=== PATIENT | male | born 1975 | race Caucasian/White ===

== ENCOUNTER 2019-12-13 08:00 | Outpatient (RCR) | payer BC ==
[~2019-12-13 08:00] MED LIST: ASPIRIN E.C. 8181 MG PO; NATURE'S BLEND1 TA6 PO; PRINIVIL20 MG PO; TYLENOL 500MG500 MG PO; ZYRTEC 10MG10 MG PO
== END 2020-01-19 | disposition home or self-care (01) ==
LOC: WSOT
DX: M25.542 Pain in joints of left hand (principal)

== ENCOUNTER 2021-10-05 06:49 | Day surgery (SDC) | payer BC ==
[~2021-10-05] VITALS: Ht 185.4 cm; Wt 103.4 kg
[2021-10-05] MEDS ORDERED: VITAMIN D3 (07:09)
[2021-10-05] MEDS ORDERED: GLUCOSAMINE & C1 CA2 (07:10)
[2021-10-05] MEDS ORDERED: PRINIVIL10 MG PO (07:10)
[2021-10-05 08:15] VITALS: BP 122/69; PULSE 70; TEMP 97.8
[2021-10-05 08:30] VITALS: BP 124/81; PULSE 63
[2021-10-05 08:45] VITALS: BP 123/69; PULSE 70
[2021-10-05 09:44] VITALS: BP 147/89; PULSE 74; TEMP 97.5
--- NOTE | 2021-10-05 15:30 | NUR ---
0815 RETURNS TO ROOM FROM PROCEDURE, SITS IN RECLINER. DENIES NAUSEA OR ABD PAIN. FORMER IN ROOM. 0840 TOLERATES PO SODA AND MUFFIN WITHOUT NAUSEA. 0850 DISCHARGE INSTRUCTIONS REVIEWED WITH PATIENR. COPY OF INSTRUCTIONS PROVIDED AT DISCHARGE. 0900 DRESSES SELF.
== END 2021-10-05 09:05 | disposition home or self-care (01) ==
LOC: SDCO 06:49
DX: Z12.11 Encounter for screening for malignant neoplasm of colon (principal); I10 Essential (primary) hypertension; Z79.82 Long term (current) use of aspirin
CPT/HCPCS: J2704; J7030